=== PATIENT | female | born 1960 | race Two or more races ===

== ENCOUNTER 2024-02-16 19:26 | Emergency (ER) | payer OTHER ==
[~2024-02-16] VITALS: Ht 162.6 cm; Wt 70.3 kg
[2024-02-16] MEDS ORDERED: STATINS (19:31)
[2024-02-16] MEDS ORDERED: EPIPEN 2-P0.3 MG/0.3 IM (21:10)
== END 2024-02-16 21:46 | disposition home or self-care (01) ==
LOC: ER 19:27
DX: T63.441A Toxic effect of venom of bees, accidental (unintentional), initial encounter (principal); Y92.89 Other specified places as the place of occurrence of the external cause; Z88.0 Allergy status to penicillin